=== PATIENT | female | born 1955 | race Caucasian/White ===

== ENCOUNTER 2018-05-14 15:05 | Inpatient (IN) | payer MEDICARE, OTHER ==
[~2018-05-14] VITALS: Ht 165.1 cm; Wt 100.9 kg
[~2018-05-14 15:05] MED LIST: AMARYL2 MG PO; COMBIVENT; ONGLYZA5 MG PO; PRINIVIL20 MG PO; PRINIVIL40 MG; PROAIR HFA8.5 GM INH; SPIRONOLACTONE25 M1; STIOLTO RESPIMAT4 GM INH
[2018-05-14 15:10] VITALS: BP 174/74
[2018-05-14] MEDS ORDERED: LIVALO2 MG PO (15:18)
[2018-05-14] MEDS ORDERED: ASPIR 8181 MG PO (15:18)
[2018-05-14 15:24] LABS: ABSOLUTE EOSINOPHILS 0.2 thou/uL (0.0-0.7); ABSOLUTE LYMPHOCYTES 4.3 thou/uL (0.8-5.3); ABSOLUTE MONOCYTES 0.6 thou/uL (0.0-1.2); ABSOLUTE NEUTROPHILS 7.7 thou/uL (1.6-8.1); BASOPHILS 0.3 %; EOSINOPHILS 1.8 %; HEMATOCRIT 43.9 % (37.0-47.0); HEMOGLOBIN 14.7 gm/dL (12.0-15.0); LYMPHOCYTES 33.3 %; MCH 31.5 pg (26.0-34.0); MCHC 33.5 g/dL (28.0-37.0); MCV 93.8 fL (80.0-100.0); MONOCYTES 4.7 %; MPV 7.3 fl. (7.2-11.1); NUCLEATED RBCS 0 /100WBC; PLATELET COUNT* 481 thou/uL (150-400); POLYS 59.9 %; RBC 4.68 mil/uL (4.20-5.00); RDW-CV 13.5 % (10.5-14.5); WBC 12.9 thou/uL (4.0-11.0)
[2018-05-14 15:37] LABS: ANION GAP 7 mmol/L (7-16); APTT 28.2 Seconds (25.0-31.3); BUN 9 mg/dL (7-18); CALCIUM 9.7 mg/dL (8.5-10.1); CHLORIDE 101 mmol/L (98-107); CO2 28 mmol/L (21-32); CREATININE 0.8 mg/dL (0.6-1.3); GLUCOSE 205 mg/dL (70-99); INR 1.1; POTASSIUM 4.3 mmol/L (3.5-5.1); PROTIME 10.3 Seconds (9.20-11.50); SODIUM 136 mmol/L (136-145)
[2018-05-14 15:54] LABS: ALBUMIN 3.6 g/dL (3.4-5.0); ALKALINE PHOSPHATASE 103 U/L (46-116); CK-MB MASS 0.8 ng/mL (<0.5-3.6); NT-PRO BRAIN NAT PEPTIDE 29 pg/mL (<300); SGOT 13 U/L (15-37); SGPT 14 U/L (30-65); TOTAL BILIRUBIN 0.1 mg/dL (<0.1-1.0); TOTAL PROTEIN 7.8 g/dL (6.4-8.2); TROPONIN-I LEVEL <0.06 ng/mL (<0.06)
[2018-05-14 16:03] LABS: URINE BILIRUBIN NEGATIVE (Negative); URINE BLOOD NEGATIVE (Negative); URINE CLARITY CLEAR; URINE COLOR YELLOW; URINE GLUCOSE-RANDOM NEGATIVE (Negative); URINE KETONES NEGATIVE (Negative); URINE LEUKOCYTES-REFLEX NEGATIVE (Negative); URINE NITRITE-REFLEX NEGATIVE (Negative); URINE PROTEIN NEGATIVE (Negative); URINE SPECIFIC GRAVITY <= 1.005 (1.005-1.030); URINE UROBILINOGEN 0.2 E.U./dl (0.2-1.0)
[2018-05-14 17:56] VITALS: BP 138/76
[2018-05-14 18:05] VITALS: BP 141/74
[2018-05-14 18:53] VITALS: BP 141/74
--- NOTE | 2018-05-14 19:24 | NUR ---
RECEIVED REPORT FROM MARIA ESTHER IN ER. ASSUMED CARE OF PT AROUND 1805. PT A&0 X4. VSS. O2 SAT 98% ON RA. PERSONNEL COORDINATOR PLACED TRACING SR. NIH 2. BEDSIDE SWALLOW PASSED. PT REPORTS SLIGHT HEADACHE AND DENIES NEED FOR PAIN MEDICATION AT THIS TIME. PT EATING AND DRINKING WITHOUT ISSUE. IV INTACT AND SALINE LOCKED. NO SKIN ISSUES NOTED ASIDE FROM BILATERAL BRUSING TO UPPER EXTREMITIES. FAMILY AT BEDSIDE. PT INFORMED OF PLAN OF CARE, COMMUNICATES UNDERSTANDING. REST OF ADMISSION PASSED OFF TO NIGHT NURSE. PT COMFORTABLE IN ROOM; ALL NEEDS MET. LOW FALL RISK PRECAUTIONS IN PLACE. HOURLY ROUDNING PERFORMED. CALL LIGHT IS WITHIN REACH.
[2018-05-14 20:00] VITALS: BP 128/63
[2018-05-15] VITALS: BP 127/62
[2018-05-15 04:00] VITALS: BP 153/86
--- NOTE | 2018-05-15 06:34 | NUR ---
ASSUMED PT CARE AT 1930. ASSESSMENT COMPLETED CHARTED. PT C/O HEADACHE AND REFUSED PAIN MEDICATIONS. NIH IS AT A 2 SLIGHT ATAXIA NOTED. UP AD FERNANDO. DAUGHTER IN ROOM WITH PT. PT RESTING ALL NIGHT EXCEPT WHEN GETTING VITALS AND WAS UPSET WITH AID THAT BED IS UNCOMFORTABLE AND ROOM LIGHTING IS HORRIBLE AND IN PAIN. VSS. STILL REFUSING MEDICATION. WILL CONTINUE TO MONITOR.
[2018-05-15 07:45] LABS: HEMOGLOBIN 14.2 gm/dL (12.0-15.0); MCV 94.1 fL (80.0-100.0); MPV 7.4 fl. (7.2-11.1); RBC 4.57 mil/uL (4.20-5.00); RDW-CV 13.5 % (10.5-14.5)
[2018-05-15 08:00] VITALS: BP 120/67
[2018-05-15 08:14] LABS: ALBUMIN 3.5 g/dL (3.4-5.0); ALKALINE PHOSPHATASE 93 U/L (46-116); ANION GAP 4 mmol/L (7-16); BUN 6 mg/dL (7-18); CALCIUM 9.8 mg/dL (8.5-10.1); CHLORIDE 103 mmol/L (98-107); CHOLESTEROL 170 mg/dL (<200); CO2 28 mmol/L (21-32); CREATININE 0.8 mg/dL (0.6-1.3); GLUCOSE 193 mg/dL (70-99); HDL CHOLESTEROL 28 mg/dL (>40); LDL CHOLESTEROL 78 mg/dL (<100); MAGNESIUM 2.1 mg/dL (1.8-2.4); POTASSIUM 4.3 mmol/L (3.5-5.1); SGOT 14 U/L (15-37); SGPT 16 U/L (30-65); SODIUM 135 mmol/L (136-145); TC:HDL 6.1 Ratio (Not establshd); TOTAL BILIRUBIN 0.3 mg/dL (<0.1-1.0); TOTAL PROTEIN 7.6 g/dL (6.4-8.2); TRIGLYCERIDE 320 mg/dL (<150); VLDL 64 mg/dL (<40)
[2018-05-15 09:03] LABS: SERUM ASSESSMENT Clear
--- NOTE | 2018-05-15 09:08 | NUR ---
SPOT WASHER: RECEIVED CONSULT FOR POSSIBLE INPATIENT REHAB ADMISSION. CONSULT HAS BEEN ACKNOWLEDGED BY SPOT WASHER AND /CECY. 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 WILL FOLLOW PATIENT PARTICIPATES IN THERAPY EVALUATIONS THIS DATE FOR FUNCTIONAL STATUS AND ASSIST WITH RECOMMENDATIONS. THANKS FOR THIS CONSULT.
--- NOTE | 2018-05-15 10:40 | EKG ---
[place] [address] ELECTROCARDIOGRAM REPORT Name: RUDY PACHECO Room: [address] IN .R.#: [id number] Admission: 05/14/18 Attend Phys: Mackenzie Prieto MD Discharge: Date of : 51 Report #: [id number] THIS REPORT FOR: //name// [facility] ED Test Date: 2018-05-14 Test Time: 15:31:05 Pat Name: RUDY PACHECO Department: Room: Gender: F Twisting Department End Finder: Golden KELLER : 1955 Requested By: Mauro David Order Number: [id number] MD: Bora Pepe Measurements Intervals Benedict Rate: 100 P: 80 [place]: 135 QRS: 57 QRSD: 84 T: 65 QT: 351 QTc: 453 Interpretive Statements Sinus tachycardia Low voltage, precordial leads Compared to ECG 04/14/2017 18:09:40 Sinus rhythm no longer present Electronically Signed On 05-15-2018 10:40:42 CDT by Bora Pepe [email or web address] <ELECTRONICALLY SIGNED> By: Bora Pepe MD, [facility] 05/15/18 1040 1531 1531 Bora Pepe MD, [facility] /EPI
--- NOTE | 2018-05-15 11:07 | NUR ---
RECEIVED REPORT FROM YOANNA RODRIGUEZ. ASSUMED CARE OF PT AROUND 0730. VSS. PT A&O X4. O2 SAT 95% ON RA. ELECTRONICS ENGINEERING TECHNOLOGIST IN PLACE TRACING ST. AM ASSESSMENT AND VITALS COMPELTED CHARTED. IV INTACT AND SALINE LOCKED. LUNGS WHEEZY AND DIMINISHED THROUGHOUT. PT EATING AND DRINKING WITHOUT ISSUE. PT UP AD FERNANDO. BM THIS AM. VOIDING WITHOUT ISSUE. PT UNABLE TO COMPELTED U/S OF CAROTIDS DUE TO ANXIETY, DR GOLDEN. PLAN IS FOR PT TO GO HOME THIS AFTERNOON. PT CURRENTLY AMBULATING IN HALLWAY WITH DAUGHTER. LOW FALL RISK PRECAUTIONS IN PLACE. HOURLY ROUNDING PERFORMED. WCTM.
--- NOTE | 2018-05-15 12:27 | NUR ---
PT'S MEDICAL CHART REVIEWED AND STATUS DISCUSSED W/ NSG. PT DEMO INDEPENDENT AND STABLE TRANSFERS AND GAIT W/O DME SUPPORT. PT DEMO NO FOCAL MOTOR OR SENSORY DEFICIT OF BILAT LES. LE COORDINATION IS INTACT. NEGATIVE BABINSKI AND CLONUS. PT VOICES NO BARRIERS FOR RETURN TO HOME AND INDICATES STRONG SOCIAL SUPPORT. PT LIVES W/ FAMILY. NO FURTHER ACUTE PT SERVICES ARE INDICATED. RECOMMENDED TO PATIENT AND FAMILY TO PURSUE OUTPATIENT SERVICES IF ANY CONCERNS ARISE UPON RETURN TO HOME SETTING.
--- NOTE | 2018-05-15 12:28 | 2DMMODE ---
[place] [address] 2 D/M-MODE ECHOCARDIOGRAM Name: RUDY PACHECO Room: [address] IN [facility]#: [id number] Admission: 05/14/18 Attend Phys: Mackenzie Prieto, Discharge: Date of : 51 Date of Service: 05/15/18 1228 Report #: [id number] THIS REPORT FOR: //name// APPROVED REPORT Study performed: 05/15/2018 11:13:39 EXAM: Comprehensive 2D, Doppler, and color-flow Echocardiogram Patient Location: In-Patient Room #: [facility] Status: routine BSA: 2.08 HR: 89 bpm BP: 120/67 mmHg Rhythm: NSR Other Information Study Quality: Fair Indications CVA/TIA Echo Enhancing Agent Indication: Rule out Shunt Agent(s) / Amount(s) Used: Agitated Saline 10 cc 2D Dimensions LVEF(%): 84.83 (>50%) IVSd: 13.21 (7-11mm) LVOT Diam: 17.00 (18-24mm) LVDd: 44.18 mm PWd: 10.38 (7-11mm) Ascending Ao: 25.84 (22-36mm) LVDs: 20.43 (25-40mm) Aortic Root: 25.13 mm Frank's LVEF: 84.83 % Volumes Left Atrial Volume (Systole) LA ESV Index: 13.10 mL/m2 Aortic Valve AoV Peak Jose Roberto.: 1.67 m/s AO Peak Gr.: 11.16 mmHg LVOT Max P.78 mmHg AO Mean Gr.: 6.45 mmHg LVOT Mean P.25 mmHg LVOT Max V: 1.09 m/s AO V2 VTI: 32.20 cm LVOT Mean V: 0.69 m/[place] [address] 2 D/M-MODE ECHOCARDIOGRAM Name: RUDY PACHECO Room: [address] IN .R.#: [id number] Admission: 05/14/18 Attend Phys: Mackenzie Prieto, Discharge: Date of : 51 Date of Service: 05/15/18 1228 Report #: [id number] FELI (VTI): 1.42 cm2 LVOT V1 VTI: 20.20 cm Mitral Valve E/A Ratio: 0.64 MV Decel. Time: 379.17 ms MV E Max Jose Roberto.: 0.73 m/s MV PHT: 109.96 ms MVA (PHT): 2.00 cm2 TDI E/Lateral E': 9.13 E/Medial E': 6.64 Medial E' Jose Roberto.: 0.11 m/s Lateral E' Jose Roberto.: 0.08 m/s Pulmonary Valve PV Peak Jose Roberto.: 1.16 m/s PV Peak Gr.: 5.39 mmHg Left Ventricle The left ventricle is normal size. There is normal LV segmental wall motion. There is normal left ventricular wall thickness. Left ventricular systolic function is normal. The left ventricular ejection fraction is within the normal range. LVEF is 60-65%. Grade I - abnormal relaxation pattern. Right Ventricle The right ventricle is normal size. The right ventricular systolic function is normal. Atria The left atrium size is normal. Interatrial septum is intact without evidence of ASD or PFO. The right atrium size is normal. Aortic Valve Mild aortic valve sclerosis. No aortic regurgitation is present. Mild aortic stenosis. Mitral Valve The mitral valve is normal in structure. There is no mitral valve regurgitation noted. No evidence of mitral valve stenosis. Tricuspid Valve The tricuspid valve is normal in structure. Unable to assess PA pressure. Trace tricuspid regurgitation. Pulmonic Valve Pulmonic valve is not well visualized. There [place] [address] 2 D/M-MODE ECHOCARDIOGRAM Name: RUDY PACHECO Room: [address] IN M.R.#: [id number] Admission: 05/14/18 Attend Phys: Mackenzie Prieto, Discharge: Date of : 51 Date of Service: 05/15/18 1228 Report #: [id number] regurgitation. Great Vessels The aortic root is normal in size. IVC is normal in size and collapses with >50% inspiration Pericardium There is no pericardial effusion. <Conclusion> LVEF is 60-65%. Interatrial septum is intact without evidence of ASD or PFO. Mild aortic valve sclerosis. <ELECTRONICALLY SIGNED> By: Bora Pepe MD, [facility] 05/15/18 1228 1228 1228 Bora Pepe MD, FAC /INF
[2018-05-15 13:31] VITALS: BP 120/67
--- NOTE | 2018-05-15 13:34 | NUR ---
MET WITH PT TO DISCUSS HOME SITUATION/DC PLANNING. PT LIVES WITH 2 DTR, BROTHER AND FAMILY. SHE IS INDEPENDENT AND WITH ADLS. HAS CANE. PT DENIES ANY DC NEEDS AND WANTS TO GO HOME. SHE DECLINES HH. EXPLAINED ABOUT SETTING UP 30 DAY EVENT [facility]. INFO CALLED AND FAXED TO [facility], [place] FOR THEM TO ARRANGE SINCE PT NOT SEEN BY CV HERE. NO OTHER NEEDS ID'D
[2018-05-15] MEDS ORDERED: ASPIRIN325 PO (13:38)
--- NOTE | 2018-05-15 13:39 | NUR ---
CRAYON MOLDING MACHINE OPERATOR: PATIENT HAS PARTICIPATED IN THERAPY EVALUATION AND IS FUNCTIONING AT HIGH LEVEL. PATIENT DOES NOT QUALIFY FOR INPATIENT REHAB STAY. THANK YOU FOR THIS CONSULT
[2018-05-15] MEDS ORDERED: FISH OIL 1,001000 M2 PO (14:40)
--- NOTE | 2018-05-15 14:53 | NUR ---
DISCHARGE ORDERS RECEIVED. DISCHARGE COMPELTED DOCUMENTED. DISCHARGE SUMMARY AND CARE NOTES GONE OVER WITH PT AND FAMILY; ALL COMMUNICATE UNDERSTANDING. PT AWARE OF F/U APPOINTMENTS WITH PCP AND NEUROLOGY. PT AWARE THAT CARDIAC EVENT MONITOR WILL COME TO HER HOUSE NEXT WEEK. U/S OF CAROTIDS COMPLETED - RESULTS TO BE CALLED TO PT WHEN BACK. DR ALMANZA AWARE. PT AWARE THAT SPEECH THERAPY IS RECOMMENDED. PT REFUSED HOME HEALTH. ALL BELONGINGS GATHERED AND SENT WITH PT. IV AND INTERNET ECOMMERCE SPECIALIST REMOVED. PT LEFT UNIT IN WC WITH NURSING STAFF. PT LEFT HOSPITAL IN CAR WITH DAUGHTER.
== END 2018-05-15 14:52 | disposition home or self-care (01) | DRG 64 ==
LOC: M.ERS 15:05 → M.2W 17:12 → M.TBA-ER 17:12 → M.2W 18:10
PROVIDERS: Emergency Medicine Emergency Medical Services; ADMIT Internal Medicine
DX: I63.9 Cerebral infarction, unspecified (principal); G93.40 Encephalopathy, unspecified; I10 Essential (primary) hypertension; F41.9 Anxiety disorder, unspecified; F17.210 Nicotine dependence, cigarettes, uncomplicated; J44.9 Chronic obstructive pulmonary disease, unspecified; E78.5 Hyperlipidemia, unspecified; E11.9 Type 2 diabetes mellitus without complications; Z88.8 Allergy status to other drugs, medicaments and biological substances; Z88.6 Allergy status to analgesic agent; Z91.041 Radiographic dye allergy status; Z79.82 Long term (current) use of aspirin; Z79.899 Other long term (current) drug therapy

== ENCOUNTER → 2020-06-14 | Outpatient (CLI) | payer MEDICARE, OTHER ==
[~2020-06-14] MED LIST changes: +ASPIR 8181 MG PO; +ASPIRIN325 PO; +FISH OIL 1,001000 M2 PO; +LIVALO2 MG PO
== END ==
LOC: M.ULTRA 12:49
DX: I63.9 Cerebral infarction, unspecified (principal); M79.89 Other specified soft tissue disorders